=== PATIENT | male | born 1990 | race Caucasian/White ===

== ENCOUNTER 2023-01-27 01:20 | Emergency (ER) | payer BC ==
--- OUTSIDE RECORDS SUMMARY | 2023-01-27 01:22 | XMS REPORT | Continuity of Care Document ---
:1990 Author Organization [facility] t Address [address] [place] [id number] Care Team Providers Name Role Phone Unavailable Unavailable Unavailable Problems This patient has no known problems. Allergies, Adverse Reactions, Alerts This patient has no known allergies or adverse reactions. Medications This patient has no known medications. Procedures This patient has no known procedures. Results This patient has no known results.
[2023-01-27] MEDS ORDERED: MORPHINE 4 MG/ML SYR ONE ×2 (02:06→03:25)
[2023-01-27] MEDS ORDERED: ONDANSETRON 4 MG/2 ML VIAL ONE (02:06)
[2023-01-27] MEDS ORDERED: NA CHLORIDE 0.9% 1,000 ML ONE (02:07)
[2023-01-27] MEDS ORDERED: KETOROLAC 30 MG/ML INJ ONE (02:07)
[2023-01-27 02:27] LABS: Hematocrit 48.3 % (39.6-49.0); Lymphocytes % 12.5 % (15.3-44.8); MCV 88.4 fL (80-100); MPV 11.5 fL (7.6-11.3); Platelets 154 thou/uL (152-406); RBC Red Blood Cell Count 5.46 M/uL (4.33-5.43)
[2023-01-27 02:34] LABS: Albumin 4.2 g/dL (3.4-5.0); Bilirubin Total 1.8 mg/dL (0.2-1.0); Potassium 3.7 mEq/L (3.5-5.1); Protein, Total 7.7 g/dL (6.4-8.2)
[2023-01-27] MEDS ORDERED: METOCLOPRAMIDE 10 MG/2mL INJ ONE (03:25)
[2023-01-27] MEDS ORDERED: TAMSULOSIN 0.4 MG SR CAP ONE (03:25)
[2023-01-27 03:37] LABS: Specific Gravity > 1.030 (1.005-1.030); Urine Bacteria <20 /HPF (<20); Urine Bilirubin NEGATIVE (Negative); Urine Blood 3+ (OVER) (Negative); Urine Clarity Extremely Turbid (Clear); Urine Color Yellow (Yellow); Urine Glucose NEGATIVE (Negative); Urine Mucus 4+ /HPF (None Seen); Urine Protein 2+ (Negative); Urine RBC >50 /HPF (None Seen); Urine Urobilinogen 1+ (Normal); Urine pH 5.5 (5.0-7.0)
--- NOTE | 2023-01-27 04:27 | EDPHYS ---
Physician Documentation [facility] Name: Saulo Ospina Age: 32 yrs Sex: Male : 1990 Arrival Date: 01/27/2023 Time: 01:20 Bed 12 Private MD: ED Physician Seb Billingsley HPI: 01/27 01:27 This 32 yrs old Male presents to ER via Unassigned with complaints of sp4 Abdominal Pain, Possible Kidney Stone, Low Back Pain, Nausea/Vomiting. 01:38 32-year-old male presents with sudden onset of left flank pain with radiation to the sp4 back associated with spasmodic quality of pain also multiple episodes of vomiting starting at midnight. Patient reports prior history of kidney stones. No known drug allergies. . Historical: - Allergies: 02:07 No Known Allergies; kl - Home Meds: 02:07 None [Active]; kl - PMHx: 02:07 Kidney stone; kl - PSHx: 02:07 None; kl - Immunization history:: Adult Immunizations not immunized. - Family history:: not pertinent. - Social history:: Smoking status: Patient denies any tobacco usage or history of. ROS: 01:38 Constitutional: Negative for fever, chills, and weight loss, Abdomen/GI: Negative for sp4 diarrhea, and constipation, positive for left flank pain, radiation to left back, positive for nausea vomiting Back: Positive for left back pain 01:38 All other systems are negative. Exam: 01:38 Constitutional: This is a well developed, well nourished patient who is awake, alert, sp4 uncomfortable appearing male, who has vomited on arrival to the ER.. Head/Face: Normocephalic, atraumatic. Eyes: Pupils equal round and reactive to light, extra-ocular motions intact. Lids and lashes normal. Conjunctiva and sclera are not injected. Cornea within normal limits. Periorbital areas with no swelling, redness, or edema. ENT: Nares patent. No nasal discharge, no septal abnormalities noted. Tympanic membranes are normal and external auditory canals are clear. Oropharynx with no redness, swelling, or masses, exudates, or evidence of obstruction, uvula midline. Mucous membranes moist. Neck: Trachea midline, no thyromegaly or masses palpated, and no cervical lymphadenopathy. Supple, full range of motion without nuchal rigidity, or vertebral point tenderness. Chest/axilla: Normal chest wall appearance and motion. Nontender with no deformity. No lesions are appreciated. Cardiovascular: Regular rate and rhythm with a normal S1 and S2. No gallops, murmurs, or rubs. Normal PMI, no JVD. No pulse deficits. Respiratory: Lungs have equal breath sounds bilaterally, clear to auscultation and percussion. No rales, rhonchi or wheezes noted. No increased work of breathing, no retractions or nasal flaring. Abdomen/GI: Soft, non-tender, with normal bowel sounds. No distension or tympany. No guarding or rebound. No evidence of tenderness throughout. Back: No spinal tenderness. No costovertebral tenderness. Male : Normal genitalia with no discharge or lesions. Skin: Warm, dry with normal turgor. Normal color with no rashes, no lesions, and no evidence of cellulitis. MS/ Extremity: Pulses equal, no cyanosis. Neurovascular intact. Full, normal range of motion. Neuro: Awake and alert, GCS 15, oriented to person, place, time, and situation. Cranial nerves II-XII grossly intact. Motor strength 5/5 in all extremities. Sensory grossly intact. Psych: Awake, alert, with orientation to person, place and time. Behavior, mood, and affect are within normal limits Vital Signs: 01:38 BP 139 / 99; Pulse 85; Resp 18; Temp 98.4(TE); Pulse Ox 99% on R/A; Weight 113.4 kg kl (R); Height 5 ft. 8 in. ; Pain 7/10; 04:41 BP 118 / 75; Pulse 64; Resp 16; Pulse Ox 99% on R/A; kl 01:38 Body Mass Index 38.01 (113.40 kg, 172.72 cm) kl 01:38 Pain Scale: Adult kl MDM: 01:43 Patient medically screened. sp4 02:55 ED course: COMPARISON: No relevant prior studies available. FINDINGS: LUNG BASES: sp4 Unremarkable. No mass. No consolidation. ABDOMEN: LIVER: The liver is enlarged and diffusely fatty. GALLBLADDER AND BILE DUCTS: No calcified stones. No ductal dilation. PANCREAS: Unremarkable. No ductal dilation. SPLEEN: Unremarkable. ADRENALS: Unremarkable. No mass. KIDNEYS AND URETERS: Mild edema left kidney with minimal left hydronephrosis and proximal hydroureter is present secondary to a 6 mm proximal left ureteral calculus. Right kidney is normal without hydronephrosis or hydroureter. No obstructing right renal calculus is seen. STOMACH AND BOWEL: The stomach is minimally distended with food contents. The small bowel is relatively normal in caliber. Minimal stool is present within the right colon. The remainder the colon is decompressed. There is no mucosal thickening or evidence of obstruction. PELVIS: APPENDIX: The appendix is normal in caliber without surrounding inflammation. BLADDER: The bladder is nearly empty. No stones. REPRODUCTIVE: Unremarkable as visualized. ABDOMEN and PELVIS: INTRAPERITONEAL SPACE: Unremarkable. No free air. No significant fluid collection. BONES/JOINTS: No acute fracture. SOFT TISSUES: A fat-containing umbilical hernia is present. VASCULATURE: Unremarkable. No abdominal aortic aneurysm. LYMPH NODES: Unremarkable. No enlarged lymph nodes. IMPRESSION: Mild edema left kidney with minimal left hydronephrosis and proximal hydroureter is present secondary to a 6 mm proximal left ureteral calculus.. 04:15 Differential diagnosis: arthritis, strain, fracture, sciatica, contusion, Herniated sp4 disc UTI. Data reviewed: vital signs. Data reviewed: nurses notes, lab test result(s), CBC, electrolytes, hepatic panel, urinalysis, radiologic studies, CT scan. Consideration of Admission/Observation Escalation of care including admission/observation considered. ED course: Patient states his pain has gone. He is feeling much better and is pain-free. Patient will be prescribed p.o. Toradol, p.o. tramadol, p.o. Zofran, and also p.o. Flomax. Will advise follow-up with urologist on Monday. Will be referred to Dr. Mariee. Patient might also be advised to return to the hospital in case of worsening pain or vomiting. And this will be advised. . 01/27 01:38 Order name: CBC with Diff; Complete Time: 02: sp4 01/27 01:38 Order name: CMP; Complete Time: 02:55 sp4 01/27 01:38 Order name: Lipase; Complete Time: 02:55 sp4 01/27 01:38 Order name: Urinalysis w/ reflexes; Complete Time: 04:22 sp4 01/27 01:38 Order name: CT Abd/Pelvis - Without Contrast; Complete Time: 04:22 sp4 01/27 01:38 Order name: IV Saline Lock; Complete Time: 02:03 sp4 01/27 01:38 Order name: Labs collected and sent; Complete Time: 02:03 sp4 Administered Medications: 01:55 Drug: morphine IVP or IV 4 mg Route: IVP; Infused Over: 4 mins; Site: right antecubital;kl 02:24 Follow up: Response: No adverse reaction; Marked relief of symptoms kl 01:55 Drug: Ondansetron IVP 8 mg Route: IVP; Site: right antecubital; kl 02:23 Follow up: Response: No adverse reaction; Marked relief of symptoms kl 01:55 Drug: NS 0.9% IV 1000 ml Route: IV; Rate: 1 bolus; Site: right antecubital; kl 04:11 Follow up: IV Status: Completed infusion; IV Intake: 1000ml kl 02:00 Drug: Ketorolac IVP 30 mg Route: IVP; Site: right antecubital; kl 02:24 Follow up: Response: No adverse reaction; Marked relief of symptoms kl 03:15 Drug: metoCLOPramide IVP 10 mg Route: IVP; Site: right antecubital; kl 04:11 Follow up: Response: No adverse reaction kl 03:20 Drug: morphine IVP or IV 4 mg Route: IVP; Infused Over: 4 mins; Site: right antecubital;kl 04:10 Follow up: Response: No adverse reaction kl 03:22 Drug: Flomax PO 0.4 mg Route: PO; kl 04:10 Follow up: Response: No adverse reaction kl Disposition Summary: 01/27/23 04:27 Discharge Ordered Location: Home sp4 Problem: new sp4 Symptoms: have improved sp4 Condition: Stable sp4 Diagnosis - Left ureteral calculus, left hydronephrosis, left flank pain sp4 - Fatty liver, elevated liver enzymes sp4 Followup: sp4 - With: Rubio Mariee MD - When: 2 - 3 days - Reason: Recheck today's complaints Discharge Instructions: - Discharge Summary Sheet sp4 - Kidney Stones, [id number] sp4 Forms: - Work release form kl - Prescription Opioid Use sp4 - Patient Portal Instructions sp4 Prescriptions: - Flomax 0.4 mg Oral capsule - take 1 capsule by ORAL route daily; 30 capsule; Refills: 0, Product Selection sp4 Permitted - ketorolac 10 mg Oral tablet - take 1 tablet by ORAL route every 8 hours for 1 day as needed for pain; 30 sp4 tablet; Refills: 0, Product Selection Permitted - ondansetron 4 mg Oral Tablet,disintegrating - take 1 tablet by ORAL route every 6 hours PRN nausea; 30 tablet; Refills: 0, sp4 Product Selection Permitted - Tramadol 50 mg Oral Tablet - take 1 tablet by ORAL route every 8 hours as needed; 12 tablet; Refills: 0, sp4 Product Selection Permitted Signatures: Dispatcher [employer] Liza Jaeger RN RN kl Potepalov, Sergey, MD MD sp4
--- NOTE | 2023-01-27 04:27 | ER ---
Nurse's Notes [facility] Name: Saulo Ospina Age: 32 yrs Sex: Male : 1990 Arrival Date: 01/27/2023 Time: 01:20 Bed 12 Private MD: Diagnosis: Left ureteral calculus, left hydronephrosis, left flank pain;Fatty liver, elevated liver enzymes Presentation: 01/27 01:38 Chief complaint: Patient states: left flank pain. Coronavirus screen: Vaccine status: Patient reports being unvaccinated. Ebola Screen: Patient negative for fever greater than or equal to 101.5 degrees Fahrenheit, and additional compatible Ebola Virus Disease symptoms. Initial Sepsis Screen: Does the patient meet any 2 criteria? No. Patient's initial sepsis screen is negative. Does the patient have a suspected source of infection? No. Patient's initial sepsis screen is negative. 01:38 Method Of Arrival: Ambulatory kl 01:39 Risk Assessment: Do you want to hurt yourself or someone else? Patient reports no desire to harm self or others. Onset of symptoms was January 27, 2023 at 00:00. 01:39 Acuity: SHAWN 3 kl Triage Assessment: 01:40 General: Appears uncomfortable, Behavior is cooperative. Pain: Complains of pain in kl left lower quadrant Pain currently is 7 out of 10 on a pain scale. Historical: - Allergies: 02:07 No Known Allergies; kl - Home Meds: 02:07 None [Active]; kl - PMHx: 02:07 Kidney stone; kl - PSHx: 02:07 None; kl - Immunization history:: Adult Immunizations not immunized. - Family history:: not pertinent. - Social history:: Smoking status: Patient denies any tobacco usage or history of. Screenin:45 [facility] ED Fall Risk Assessment (Adult) History of falling in the last 3 months, including since admission No falls in past 3 months (0 pts) Confusion or Disorientation No (0 pts) Intoxicated or Sedated No (0 pts) Impaired Gait No (0 pts) Mobility Assist Device Used No (0 pt) Altered Elimination No (0 pt) Score/Fall Risk Level 0 - 2 = Low Risk Oriented to surroundings, Maintained a safe environment. Abuse screen: Denies threats or abuse. Nutritional screening: No deficits noted. Tuberculosis screening: No symptoms or risk factors identified. Assessment: 01:50 General: Appears distressed, uncomfortable, Behavior is cooperative, anxious. Pain: kl Complains of pain in abdomen and left lower quadrant Pain currently is 7 out of 10 on a pain scale. at worst was 10 out of 10 on a pain scale. GI: Bowel sounds present X 4 quads. Abd is soft X 4 quads Reports nausea, vomiting, since midnight. : Reports left groin pain intermittent. 03:24 Reassessment: Patient appears in no apparent distress at this time. Patient states kl feeling better. Patient states symptoms have improved. Vital Signs: 01:38 BP 139 / 99; Pulse 85; Resp 18; Temp 98.4(TE); Pulse Ox 99% on R/A; Weight 113.4 kg kl (R); Height 5 ft. 8 in. ; Pain 7/10; 04:41 BP 118 / 75; Pulse 64; Resp 16; Pulse Ox 99% on R/A; kl 01:38 Body Mass Index 38.01 (113.40 kg, 172.72 cm) kl 01:38 Pain Scale: Adult ED Course: 01:22 Patient arrived in ED. [id number] 01:27 Seb Billingsley MD is Attending Physician. sp4 01:40 Triage completed. kl 01:54 No provider procedures requiring assistance completed. Inserted saline lock: 20 gauge kl in right antecubital area, using aseptic technique. Blood collected. 02:03 CBC with Diff Sent. kl 02:03 CMP Sent. kl 02:03 Lipase Sent. kl 02:06 Patient has correct armband on for positive identification. Bed in low position. Call kl light in reach. Side rails up X2. 02:33 CT Abd/Pelvis - Without Contrast In Process Unspecified. EDMS 03:23 Urinalysis w/ reflexes Sent. kl 04:11 No apparent distress. Resting quietly. Appears to be sleeping. kl 04:26 Rubio Mariee MD is Referral Physician. sp4 04:41 IV discontinued, intact, bleeding controlled, No redness/swelling at site. Pressure kl dressing applied. Administered Medications: 01:55 Drug: morphine IVP or IV 4 mg Route: IVP; Infused Over: 4 mins; Site: right antecubital;kl 02:24 Follow up: Response: No adverse reaction; Marked relief of symptoms kl 01:55 Drug: Ondansetron IVP 8 mg Route: IVP; Site: right antecubital; kl 02:23 Follow up: Response: No adverse reaction; Marked relief of symptoms kl 01:55 Drug: NS 0.9% IV 1000 ml Route: IV; Rate: 1 bolus; Site: right antecubital; kl 04:11 Follow up: IV Status: Completed infusion; IV Intake: 1000ml kl 02:00 Drug: Ketorolac IVP 30 mg Route: IVP; Site: right antecubital; kl 02:24 Follow up: Response: No adverse reaction; Marked relief of symptoms kl 03:15 Drug: metoCLOPramide IVP 10 mg Route: IVP; Site: right antecubital; kl 04:11 Follow up: Response: No adverse reaction kl 03:20 Drug: morphine IVP or IV 4 mg Route: IVP; Infused Over: 4 mins; Site: right antecubital;kl 04:10 Follow up: Response: No adverse reaction kl 03:22 Drug: Flomax PO 0.4 mg Route: PO; kl 04:10 Follow up: Response: No adverse reaction kl Intake: 04:11 IV: 1000ml; Total: 1000ml. kl Outcome: 04:27 Discharge ordered by sp4 04:41 Discharged to home ambulatory, with family. kl 04:41 Condition: improved 04:41 Discharge instructions given to patient, family, Instructed on discharge instructions, follow up and referral plans. medication usage, Demonstrated understanding of instructions, follow-up care, medications, Prescriptions given X 4. 04:42 Patient left the ED. kl Signatures: Dispatcher [employer] Liza Jaeger RN RN kl Jeffries, Jennifer jSeb Garcia MD MD sp4
[2023-01-27 05:05] VITALS: TEMP 98.4; O2SAT 99
[2023-01-27 05:11] VITALS: BP 118/75
--- NOTE | 2023-01-27 15:24 | RAD REPORT ---
EXAM DESCRIPTION: CT Abdomen and Pelvis Without Intravenous Contrast CLINICAL HISTORY: The patient is 32 years old and is Male; left flank pain TECHNIQUE: Axial computed tomography images of the abdomen and pelvis without intravenous contrast. Sagittal and coronal reformatted images were created and reviewed. This CT exam was performed usi ng one or more of the following dose reduction techniques: automated exposure control, adjustment o f the mA and/or kV according to patient size, and/or use of iterative reconstruction technique. COMPARISON: No relevant prior studies available. FINDINGS: LUNG BASES: Unremarkable. No mass. No consolidation. ABDOMEN: LIVER: The liver is enlarged and diffusely fatty. GALLBLADDER AND BILE DUCTS: No calcified stones. No ductal dilation. PANCREAS: Unremarkable. No ductal dilation. SPLEEN: Unremarkable. ADRENALS: Unremarkable. No mass. KIDNEYS AND URETERS: Mild edema left kidney with minimal left hydronephrosis and proximal hydrour eter is present secondary to a 6 mm proximal left ureteral calculus. Right kidney is normal without hydronephrosis or hydroureter. No obstructing right renal calculus is seen. STOMACH AND BOWEL: The stomach is minimally distended with food contents. The small bowel is rela tively normal in caliber. Minimal stool is present within the right colon. The remainder the colon is decompressed. There is no mucosal thickening or evidence of obstruction. PELVIS: APPENDIX: The appendix is normal in caliber without surrounding inflammation. BLADDER: The bladder is nearly empty. No stones. REPRODUCTIVE: Unremarkable as visualized. ABDOMEN and PELVIS: INTRAPERITONEAL SPACE: Unremarkable. No free air. No significant fluid collection. BONES/JOINTS: No acute fracture. SOFT TISSUES: A fat-containing umbilical hernia is present. VASCULATURE: Unremarkable. No abdominal aortic aneurysm. LYMPH NODES: Unremarkable. No enlarged lymph nodes. IMPRESSION: Mild edema left kidney with minimal left hydronephrosis and proximal hydroureter is pres ent secondary to a 6 mm proximal left ureteral calculus. Electronically signed by: Maritza Vasquez MD 01/27/2023 2:50 AM CDT Due to temporary technical issues with the PACS/Fluency reporting system, reports are being signed by the in house radiologists without review as a courtesy to insure prompt reporting. The interpreting radiologist is fully responsible for the content of the report.
== END 2023-01-27 04:42 | disposition home or self-care (01) ==
LOC: ER 01:20
DX: N20.1 Calculus of ureter (principal); N13.30 Unspecified hydronephrosis; K76.0 Fatty (change of) liver, not elsewhere classified; R74.01 Elevation of levels of liver transaminase levels; Z87.442 Personal history of urinary calculi
CPT/HCPCS: 96361; 85025; 81001; 36415; 83690; 80053; 74176; 96375; 96374; 99284; J2765; J2405; J7030

== ENCOUNTER 2023-01-30 07:01 | Emergency (ER) | payer BC ==
--- OUTSIDE RECORDS SUMMARY | 2023-01-30 07:05 | XMS REPORT | Continuity of Care Document ---
:1990 Author Organization [facility] t Address [address] [facility] [address] [place] [address] Care Team Providers Name Role Phone TOBIN VERDIN Attending Clinician Unavailable Problems This patient has no known problems. Allergies, Adverse Reactions, Alerts This patient has no known allergies or adverse reactions. Medications This patient has no known medications. Procedures This patient has no known procedures. Encounters Start End Encounter Admission Attending Care Care Encounter Source Date/Time Date/Time Type Type Clinicians Facility Department ID 2023-01-27 2023-01-28 Emergency E [facility] [id number] TANVIR 19:04:00 00:08:00 She[facility]har CAIN Results This patient has no known results.
[2023-01-30 07:31] LABS: Absolute Lymphocytes (CBC) 1.2 K/uL (0.7-4.9); Hematocrit 45.1 % (39.6-49.0); Lymphocytes % 16.9 % (15.3-44.8); Platelets 144 thou/uL (152-406); RBC Red Blood Cell Count 5.18 M/uL (4.33-5.43)
[2023-01-30] MEDS ORDERED: MORPHINE 4 MG/ML SYR ONE (07:32)
[2023-01-30] MEDS ORDERED: MAGNESIUM SULFATE 1 gm IVPB 1 GM/100 ML BAG IV ONE (07:32)
[2023-01-30] MEDS ORDERED: ONDANSETRON 4 MG/2 ML VIAL ONE (07:32)
[2023-01-30] MEDS ORDERED: KETOROLAC 30 MG/ML INJ ONE (07:32)
[2023-01-30 07:43] LABS: Albumin 4.1 g/dL (3.4-5.0); Bilirubin Total 1.1 mg/dL (0.2-1.0); Potassium 3.7 mEq/L (3.5-5.1); Protein, Total 7.8 g/dL (6.4-8.2)
[2023-01-30] MEDS ORDERED: PROMETHAZINE INJ 25 MG/ML AMP ONE (08:07)
[2023-01-30] MEDS ORDERED: HYDROMORPHONE HCL 1 MG/ML INJ ONE (08:08)
[2023-01-30] MEDS ORDERED: TAMSULOSIN 0.4 MG SR CAP ONE (08:08)
--- NOTE | 2023-01-30 08:12 | RAD REPORT ---
EXAM DESCRIPTION: CT - Stone Protocol - 01/30/2023 7:30 am CLINICAL HISTORY: ABD PAIN COMPARISON: Abdomen Pelvis Wo Contrast dated 01/27/2023bdomen Pelvis Wo Contrast dated 01/27/2023 TECHNIQUE: Thin cut axial CT imaging of the abdomen and pelvis was performed without IV contrast. Mu ltiplanar reformats were generated and reviewed. All CT scans are performed using dose optimization technique as appropriate and may include automated exposure control or mA/KV adjustment according to patient size. FINDINGS: No suspicious findings in the lung bases. Diffuse hepatic parenchymal hypoattenuation suggesting steatosis, with a stable small hyperechoic les ion in segment 3 measuring 1.3 cm, not entirely specific, but may represent focal fatty sparing, less likely a small hemangioma. Spleen, adrenal glands, and pancreas show no suspicious findings. Gallbla dder and biliary tree are also without suspicious finding. Symmetric renal contour, without suspicious parenchymal findings within limits of noncontrast techniq ue. Stable minimal left hydronephrosis secondary to a 5 millimeter calculus along the proximal left u reter. No dilated bowel loops or bowel wall thickening. No free air, free fluid or inflammatory stranding. N o hernia, mass or bulky lymphadenopathy. The urinary bladder is decompressed, limiting evaluation, ag ain with mildly increased density of its content, which could relate to proteinaceous material or blo od products. No suspicious bony findings. IMPRESSION: Stable minimal left hydronephrosis, probably secondary to a 5 millimeter proximal left u reteric calculus, which is stable in position. Diffuse hepatic steatosis. Minimally increased density of the content within the decompressed urinary bladder as above. This is also stable.
[2023-01-30 08:54] LABS: Specific Gravity > 1.030 (1.005-1.030); Urine Bacteria None Seen /HPF (<20); Urine Bilirubin NEGATIVE (Negative); Urine Blood 3+ (Negative); Urine Clarity Extremely Turbid (Clear); Urine Color Yellow (Yellow); Urine Glucose NEGATIVE (Negative); Urine Mucus 4+ /HPF (None Seen); Urine Protein 1+ (Negative); Urine RBC >50 /HPF (None Seen); Urine Urobilinogen 1+ (Normal); Urine pH 5.5 (5.0-7.0)
[2023-01-30] MEDS ORDERED: NA CHLORIDE 0.9% 500 ML ONE ×2 (08:55→09:53)
[2023-01-30] MEDS ORDERED: FENTANYL CITR 100 MCG/2 ML ONE (09:53)
--- NOTE | 2023-01-30 10:07 | ER ---
Nurse's Notes [facility] Name: Saulo Ospina Age: 32 yrs Sex: Male : 1990 Arrival Date: 01/30/2023 Time: 07:01 Bed 13 Private MD: Diagnosis: Calculus of ureter Presentation: 01/30 07:04 Chief complaint: Patient states: "I was seen here about 3 days ago for a kidney stone aa5 and the pain was fine Monday and Monday but it got worse this morning". Pt c/o pain to LLQ and left flank, also reports nausea/vomiting today. 07:04 Coronavirus screen: vomiting. Ebola Screen: Patient denies travel to an Ebola-affected [facility] area in the 21 days before illness onset. Initial Sepsis Screen: Does the patient meet any 2 criteria? No. Patient's initial sepsis screen is negative. Does the patient have a suspected source of infection? No. Patient's initial sepsis screen is negative. Risk Assessment: Do you want to hurt yourself or someone else? Patient reports no desire to harm self or others. Onset of symptoms was January 30, 2023. 07:04 Acuity: SHAWN 3 aa5 07:04 Method Of Arrival: Ambulatory aa5 Historical: - Allergies: 07:11 No Known Allergies; aa5 - PMHx: 07:11 Kidney stone; aa5 - Family history:: not pertinent. - Hospitalizations: : No recent hospitalization is reported. Screenin:10 [facility] ED Fall Risk Assessment (Adult) History of falling in the last 3 months, aa5 including since admission No falls in past 3 months (0 pts) Confusion or Disorientation No (0 pts) Intoxicated or Sedated No (0 pts) Impaired Gait No (0 pts) Mobility Assist Device Used No (0 pt) Altered Elimination No (0 pt) Score/Fall Risk Level 0 - 2 = Low Risk Oriented to surroundings, Maintained a safe environment, Educated pt \\T\\ family on fall prevention, incl call for assistance when getting out of bed. Abuse screen: Denies threats or abuse. Nutritional screening: No deficits noted. Tuberculosis screening: No symptoms or risk factors identified. Assessment: 07:05 General: Appears uncomfortable, Behavior is calm, cooperative. Pain: Complains of pain aa5 in left lower quadrant Pain radiates to left flank Pain currently is 9 out of 10 on a pain scale. Quality of pain is described as sharp, shooting, Pain began this morning Is continuous. Neuro: Level of Consciousness is awake, alert, obeys commands, Oriented to person, place, time, situation. Cardiovascular: Patient's skin is warm and dry. Respiratory: Airway is patent Respiratory effort is even, unlabored, Respiratory pattern is regular, symmetrical. GI: Abdomen is round Bowel sounds present X 4 quads. Abd is soft X 4 quads. : No signs and/or symptoms were reported regarding the genitourinary system. Denies blood in urine. EENT: No signs and/or symptoms were reported regarding the EENT system. Derm: Skin is pink, warm \\T\\ dry. Musculoskeletal: Range of motion: intact in all extremities. 07:20 Reassessment: Patient is alert, oriented x 3, equal unlabored respirations, skin aa5 warm/dry/pink. 07:30 Reassessment: Pt to CT . aa5 07:35 Reassessment: Pt back from CT scan, pt rates pain 5/10, appears more comfortable than aa5 previous assessment, pt also reports nausea has improved. . 07:55 Reassessment: Pt dry heaving and rates pain 6/10, pt appears uncomfortable. MD was aa5 notified. . 08:16 Reassessment: Patient is alert, oriented x 3, equal unlabored respirations, skin aa5 warm/dry/pink. Patient states feeling better. Patient states symptoms have improved. Pain: Pain currently is 3 out of 10 on a pain scale. 08:40 Reassessment: Patient is alert, oriented x 3, equal unlabored respirations, skin aa5 warm/dry/pink. Pt sitting up in bed. . General: Appears comfortable. 09:46 Reassessment: Patient is alert, oriented x 3, equal unlabored respirations, skin aa5 warm/dry/pink. 09:46 Pain: Pain currently is 6 out of 10 on a pain scale. aa5 10:25 Reassessment: Patient is alert, oriented x 3, equal unlabored respirations, skin aa5 warm/dry/pink. Patient states feeling better. Patient states symptoms have improved. Vital Signs: 07:04 BP 142 / 115; Pulse 62; Resp 20 S; Temp 97.8(O); Pulse Ox 100% on R/A; Weight 119.75 kg aa5 (M); Height 5 ft. 8 in. ; 07:35 BP 155 / 102; Pulse 65; Resp 19 S; Pulse Ox 100% on R/A; aa5 08:00 Pulse 64; Resp 18 S; Pulse Ox 98% on R/A; Pain 6/10; aa5 08:16 BP 121 / 71; Pulse 68; Resp 16 S; Pulse Ox 95% on R/A; aa5 08:47 BP 122 / 71; Pulse 58; Resp 15 S; Pulse Ox 95% on R/A; aa5 09:45 BP 114 / 65; Pulse 58; Resp 16 S; Pulse Ox 95% on R/A; aa5 10:15 BP 114 / 65; Pulse 52; Resp 16 S; Temp 97.8(TE); Pulse Ox 98% on R/A; aa5 07:04 Body Mass Index 40.14 (119.75 kg, 172.72 cm) aa5 08:00 Pain Scale: Adult aa5 ED Course: 07:04 Patient arrived in ED. mg5 07:04 Ino Smith MD is Attending Physician. rn 07:04 Arm band placed on Patient placed in an exam room, on a stretcher. aa5 07:04 Patient has correct armband on for positive identification. Bed in low position. Call aa5 light in reach. Side rails up X 1. Pulse ox on. NIBP on. 07:10 Manuela Kurtz, ELDER is Primary Nurse. aa5 07:12 Triage completed. aa5 07:19 Initial lab(s) drawn, by me, sent to lab. Inserted saline lock: 20 gauge in right aa5 forearm, using aseptic technique. Blood collected. 07:31 CT Stone Protocol In Process Unspecified. EDMS 08:40 Urine collected: clean catch specimen, urine is dark yellow and total void is 50mls, aa5 was notified. 10:07 Rubio Mariee MD is Referral Physician. rn 10:25 No provider procedures requiring assistance completed. IV discontinued, intact, aa5 bleeding controlled, No redness/swelling at site. Pressure dressing applied. Administered Medications: 07:20 Drug: Ondansetron IVP 4 mg Route: IVP; Site: right forearm; aa5 07:30 Follow up: Response: No adverse reaction aa5 07:22 Drug: TORadol - Ketorolac IVP 15 mg Route: IVP; Site: right forearm; aa5 07:30 Follow up: Response: No adverse reaction aa5 07:24 Drug: morphine IVP or IV 4 mg Route: IVP; Infused Over: 4 mins; Site: right forearm; aa5 07:29 Follow up: Response: No adverse reaction aa5 07:35 Drug: Magnesium Sulfate IVPB 1 grams Route: IVPB; Infused Over: 1 hrs; Site: right aa5 forearm; 08:35 Follow up: IV Status: Completed infusion aa5 08:00 Drug: Promethazine IVP 12.5 mg Route: IVP; Site: right forearm; aa5 08:16 Follow up: Response: No adverse reaction; Nausea is decreased aa5 08:02 Drug: HYDROmorphone IVP 1 mg Route: IVP; Site: right forearm; aa5 08:16 Follow up: Response: No adverse reaction; Pain is decreased aa5 08:40 Drug: Flomax PO 0.4 mg Route: PO; aa5 09:40 Follow up: Response: No adverse reaction aa5 08:45 Drug: NS 0.9% IV 500 ml Route: IV; Rate: bolus; Site: right forearm; aa5 09:15 Follow up: IV Status: Completed infusion; IV Intake: 500ml aa5 09:40 Drug: fentaNYL (PF) IVP 50 mcg Route: IVP; Site: right forearm; aa5 10:00 Follow up: Response: No adverse reaction aa5 09:40 Drug: NS 0.9% IV 500 ml Route: IV; Rate: bolus; Site: right forearm; aa5 10:15 Follow up: IV Status: Completed infusion; IV Intake: 500ml aa5 Medication: 10:25 VIS not applicable for this client. aa5 Intake: 09:15 IV: 500ml; Total: 500ml. aa5 10:15 IV: 500ml; Total: 1000ml. aa5 Outcome: 10:07 Discharge ordered by . rn 10:25 Discharged to home ambulatory. aa5 10:25 Condition: stable 10:25 Discharge instructions given to patient, Instructed on discharge instructions, follow up and referral plans. 10:29 Patient left the ED. aa5 Signatures: Dispatcher [employer] EDMS Ino Smith MD MD rn Calderon, Audri, RN RN aa5 Bolaños, Ketty mg5 Corrections: (The following items were deleted from the chart) 07:22 Ondansetron IVP 4 mg IVP in right forearm aa5 aa5 07:30 07:26 Reassessment: Pt to CT . chet5 aa5
--- NOTE | 2023-01-30 10:07 | EDPHYS ---
Physician Documentation [facility] Name: Saulo Ospina Age: 32 yrs Sex: Male : 1990 Arrival Date: 01/30/2023 Time: 07:01 Bed 13 Private MD: ED Physician Ino Smith HPI: 01/30 07:13 This 32 yrs old Male presents to ER via Ambulatory with complaints of Low Back Pain. rn 07:13 The patient presents with pain that is acute, with no known mechanism of injury. rn 07:13 The symptoms are located in the low back. The pain radiates to the abdomen. Onset: The rn symptoms/episode began/occurred 3 day(s) ago. Modifying factors: The patient symptoms are alleviated by nothing, the patient symptoms are aggravated by nothing. Associated signs and symptoms: Pertinent positives: abdominal pain, nausea, Pertinent negatives: fever, hematuria, urinary retention. Severity of symptoms: At their worst the symptoms were moderate, in the emergency department the symptoms are unchanged. The patient has experienced similar episodes in the past. The patient has been recently seen by a physician:. Pt reports left low back pain that radiates to front, similar symptoms in past, seen a few days ago and diagnosed with proximal 6mm stone. Reports was doing well but pain returned and tramadol was not helping this AM, feels like stone is moving downward. . Historical: - Allergies: 07:11 No Known Allergies; aa5 - PMHx: 07:11 Kidney stone; aa5 - Family history:: not pertinent. - Hospitalizations: : No recent hospitalization is reported. ROS: 07:13 Constitutional: Negative for fever, chills, and weight loss, Cardiovascular: Negative rn for chest pain, palpitations, and edema, Respiratory: Negative for shortness of breath, cough, wheezing, and pleuritic chest pain, Abdomen/GI: + left sided abd and flank pain Back: + left lower back pain MS/Extremity: Negative for injury and deformity, Skin: Negative for injury, rash, and discoloration, Neuro: Negative for headache, weakness, numbness, tingling, and seizure. Exam: 07:13 Constitutional: This is a well developed, well nourished patient who is awake, alert, rn appears uncomfortable Head/Face: Normocephalic, atraumatic. Cardiovascular: Regular rate and rhythm. No pulse deficits. Respiratory: No increased work of breathing, no retractions or nasal flaring. Abdomen/GI: Soft, non-tender Skin: Warm, dry MS/ Extremity: Pulses equal, no cyanosis. Neuro: Awake and alert, GCS 15 Vital Signs: 07:04 BP 142 / 115; Pulse 62; Resp 20 S; Temp 97.8(O); Pulse Ox 100% on R/A; Weight 119.75 kg aa5 (M); Height 5 ft. 8 in. ; 07:35 BP 155 / 102; Pulse 65; Resp 19 S; Pulse Ox 100% on R/A; aa5 08:00 Pulse 64; Resp 18 S; Pulse Ox 98% on R/A; Pain 6/10; aa5 08:16 BP 121 / 71; Pulse 68; Resp 16 S; Pulse Ox 95% on R/A; aa5 08:47 BP 122 / 71; Pulse 58; Resp 15 S; Pulse Ox 95% on R/A; aa5 09:45 BP 114 / 65; Pulse 58; Resp 16 S; Pulse Ox 95% on R/A; aa5 10:15 BP 114 / 65; Pulse 52; Resp 16 S; Temp 97.8(TE); Pulse Ox 98% on R/A; aa5 07:04 Body Mass Index 40.14 (119.75 kg, 172.72 cm) aa5 08:00 Pain Scale: Adult aa5 MDM: 07:04 Patient medically screened. rn 10:06 Differential diagnosis: UTI, kidney stone, ureteral stone. Data reviewed: vital signs, rn nurses notes, lab test result(s), radiologic studies, CT scan, and as a result, I will discharge patient. Counseling: I had a detailed discussion with the patient and/or guardian regarding the historical points, exam findings, and any diagnostic results supporting the discharge/admit diagnosis, lab results, radiology results, the need for outpatient follow up, to return to the emergency department if symptoms worsen or persist or if there are any questions or concerns that arise at home. Response to treatment: the patient's symptoms have markedly improved after treatment, and as a result, I will discharge patient. Special discussion: I discussed with the patient/guardian in detail that at this point there is no indication for admission to the hospital. It is understood, however, that if the symptoms persist or worsen the patient needs to return immediately for re-evaluation. Based on the history and exam findings, there is no indication for further emergent testing or inpatient evaluation. I discussed with the patient/guardian the need to see the urologist for further evaluation of the symptoms. ED course: Pt improved, persistent 5mm stone proximal left side, mild hydro, overall stable imaging. Neg UA. Will dc home as pain controlled and given return precautions.. 01/30 07:11 Order name: CBC with Diff; Complete Time: 07:55 rn 01/30 07:11 Order name: CMP; Complete Time: 07:55 rn 01/30 07:11 Order name: Urinalysis w/ reflexes; Complete Time: 09:00 rn 01/30 07:11 Order name: CT Stone Protocol; Complete Time: 08:14 rn 01/30 07:11 Order name: IV Saline Lock; Complete Time: 07:29 rn 01/30 07:11 Order name: Labs collected and sent; Complete Time: 07:29 rn Administered Medications: 07:20 Drug: Ondansetron IVP 4 mg Route: IVP; Site: right forearm; aa5 07:30 Follow up: Response: No adverse reaction aa5 07:22 Drug: TORadol - Ketorolac IVP 15 mg Route: IVP; Site: right forearm; aa5 07:30 Follow up: Response: No adverse reaction aa5 07:24 Drug: morphine IVP or IV 4 mg Route: IVP; Infused Over: 4 mins; Site: right forearm; aa5 07:29 Follow up: Response: No adverse reaction aa5 07:35 Drug: Magnesium Sulfate IVPB 1 grams Route: IVPB; Infused Over: 1 hrs; Site: right aa5 forearm; 08:35 Follow up: IV Status: Completed infusion aa5 08:00 Drug: Promethazine IVP 12.5 mg Route: IVP; Site: right forearm; aa5 08:16 Follow up: Response: No adverse reaction; Nausea is decreased aa5 08:02 Drug: HYDROmorphone IVP 1 mg Route: IVP; Site: right forearm; aa5 08:16 Follow up: Response: No adverse reaction; Pain is decreased aa5 08:40 Drug: Flomax PO 0.4 mg Route: PO; aa5 09:40 Follow up: Response: No adverse reaction aa5 08:45 Drug: NS 0.9% IV 500 ml Route: IV; Rate: bolus; Site: right forearm; aa5 09:15 Follow up: IV Status: Completed infusion; IV Intake: 500ml aa5 09:40 Drug: fentaNYL (PF) IVP 50 mcg Route: IVP; Site: right forearm; aa5 10:00 Follow up: Response: No adverse reaction aa5 09:40 Drug: NS 0.9% IV 500 ml Route: IV; Rate: bolus; Site: right forearm; aa5 10:15 Follow up: IV Status: Completed infusion; IV Intake: 500ml aa5 Disposition Summary: 01/30/23 10:07 Discharge Ordered Location: Home rn Problem: an ongoing problem rn Symptoms: have improved rn Condition: Stable rn Diagnosis - Calculus of ureter rn Followup: rn - With: Rubio Mariee MD - When: As needed - Reason: Recheck today's complaints, Re-evaluation by your physician Discharge Instructions: - Discharge Summary Sheet rn - Kidney Stones rn - Renal Colic rn - Dietary Guidelines to Help Prevent Kidney Stones rn Forms: - Work release form iw - Medication Reconciliation Form rn - Thank You Letter rn - Antibiotic armature varnisher - Prescription Opioid Use rn - Patient Portal Instructions rn - Leadership Thank You Letter rn Signatures: Dispatcher [employer] Ino Santos MD MD rn Calderon, Audri RN RN aa5
[2023-01-30 10:34] VITALS: TEMP 97.8
[2023-01-30 10:37] VITALS: O2SAT 95
[2023-01-30 10:40] VITALS: BP 114/65
== END 2023-01-30 10:29 | disposition home or self-care (01) ==
LOC: ER 07:01
DX: N20.1 Calculus of ureter (principal); Z87.442 Personal history of urinary calculi
CPT/HCPCS: 96365; 96361; 85025; 81001; 36415; 80053; 76377; 74176; 96375; 99284; J2550; J3475; J3010; J1170; J2405; J7040 ×2